=== PATIENT | female | born 1950 | race Caucasian/White ===

== ENCOUNTER 2018-11-05 08:30 | Observation (INO) | payer MEDICARE, MEDICAID ==
[2018-10-26 12:00] VITALS: BMI 23.8
[~2018-11-05] VITALS: Ht 165.1 cm; Wt 64.8 kg
[2018-11-05] VITALS (25 sets, daily range): BP systolic 108–136; BP diastolic 63–87; PULSE 70–88; RESP 14–21; Ht 165.1 cm; Wt 64.8 kg
[~2018-11-05 08:30] MED LIST: ACETAMINOPHEN 500 MG TAB PO ONE; CEFAZOLIN 2 GM/50 ML (PMX) 50 ML (FOR WT < 120 KG) IVPB ONE; DESFLURANE 15 MIN ONE; DEXAMETHASONE 4 MG/ML 1 ML INJ IV ONE; GLYCOPYRROLATE 0.4 MG INJ ONE; LACTATED RINGER'S 1,000 ML IV SCH; NEOSTIGMINE 3 MG/3 ML SYRINGE ONE; TRANEXAMIC ACID 1GM/100ML(PMX) 100 ML AT CLOSURE X1 IVPB ONE; TRANEXAMIC ACID 1GM/100ML(PMX) 100 ML AT INCISION X1 IVPB ONE
[2018-11-05] MEDS ORDERED: ACETAMINOPHEN 1000MG/100ML IV 100 ML IVPB ONE (10:30)
[2018-11-05] MEDS ORDERED: HYDR-3601 ORAL (10:34)
[2018-11-05] MEDS ORDERED: GABA100C14 ORAL (10:34)
[2018-11-05] MEDS ORDERED: AMLO5TAB4 PO (10:34)
[2018-11-05] MEDS ORDERED: MELO7.5T39 ORAL (10:34)
--- NOTE | 2018-11-05 12:17 | HPN ---
Date/Time of Note Date/Time of Note DATE: 11/05/18 TIME: 12:17 Interval H&P Admission Note Pt. seen H&P reviewed: No system changes SERGIO ESPINOSA Nov 05, 2018 12:17
--- NOTE | 2018-11-05 13:07 | PREAC ---
Date/Time of Note Date/Time of Note DATE: 11/05/18 TIME: 13:06 Anesthesia Eval and Record Evaluation Time Pre-Procedure Interview DATE: 11/05/18 TIME: 13:06 Age 68 Sex female NPO: 8 hrs Preoperative diagnosis knee OA Planned procedure total Knee replacement Past Medical History Past Medical History: Includes Cardio: HTN Surgery & Anesthesia Issues No known issue Meds Anticoagulation: No Beta Teena within 24 hr: No Reason Beta Teena not given: Pt. not on B-Teena Reported Medications Amlodipine Besylate* (Norvasc*) 5 Mg Tablet, 5 MG PO DAILY, TAB 11/05/18 Hydrocodone Bit-Acetaminophen (Hydrocodone Bit-APAP) 5-325MG Tablet, 1 TAB ORAL Q4 PRN for PAIN LEVEL 7-10 11/05/18 Meloxicam (Mobic) 7.5 Mg Tablet, 1 TAB ORAL DAILY 11/05/18 Gabapentin* (Gabapentin*) 100 Mg Capsule, 1 CAP ORAL TID 11/05/18 Current Medications Lactated Ringer's 1,000 ml @ 25 mls/hr Q24H IV Last administered on 11/05/18at 06:00; Admin Dose 25 MLS/HR; Start 11/05/18 at 06:00 Meds reviewed: Yes Allergies Coded Allergies: No Known Allergy (Unverified , 11/05/18) Allergies Reviewed: Yes Labs/Studies Labs Reviewed: Reviewed by anesthesiologist Result Diagram: 11/05/18 1030 Laboratory Tests 11/05/18 10:30 Blood Bank Test 11/05/18 10:30 Antibody Screen NEGATIVE Blood Type B POSITIVE test: N/A Studies: ECG Pre-procedure Exam Last vitals Vital Signs Date Temp Pulse Resp B/P (MAP) Pulse Ox O2 O2 Flow FiO2 Time Delivery Rate 11/05/18 98.5 71 16 136/87 99 Room Air 10:29 (103) Airway: Adequate mouth opening, Adequate thyromental dist Mallampati: Mallampati II Teeth: Normal Lung: Normal Heart: Normal ASA Physical Status ASA physical status: 2 Emergency: None Planned Anesthetic General/MAC: ETT Neuraxial: Spinal Planned Pain Management Sub-arachniod narcotics Pre-operative Attestations Prior to commencing anesthesia and surgery, the patient was re-evaluated, there was verification of: *The patient's identity *The results of appropriate recent lab work and preoperative vital signs *The above evaluation not changing prior to induction *Anesthetic plan, risk benefits, alternative and complications discussed with patient/family; questions answered; patient/family understands, accepts and wishes to proceed. TRENTON YOU Nov 05, 2018 13:07
[2018-11-05] MEDS ORDERED: TRANEXAMIC ACID 1GM/100ML(PMX) 200 ML ONE (13:44)
[2018-11-05] MEDS ORDERED: BACITRACIN 50000 UNITS INJ ONE (13:51)
[2018-11-05] MEDS ORDERED: POLYMYXIN B 500000 UNIT INJ ONE (13:53)
[2018-11-05] MEDS ORDERED: morphine SULFATE/PF (10 MG/10 ML) INJ ONE (14:10)
[2018-11-05] MEDS ORDERED: MIDAZOLAM 1 MG/ML 2 ML INJ ONE (14:11)
--- NOTE | 2018-11-05 16:01 | SIPON ---
Date/Time of Note Date/Time of Note DATE: 11/05/18 TIME: 16:00 Operative Report Preoperative Diagnosis Left knee osteoarthritis is Postoperative Diagnosis Same Operation/Procedure Performed Left total knee replacement Surgeon see signature line title i assistant KASI Kennedy Anesthesia: spinal Estimated blood loss: 150 - 200 ml's Transfusion Required none Specimen Bone Grafts/Implants Attune knee, size 5 femur, size 4 tibia, 6 mm polyethylene, 32 patella Complications none SERGIO ESPINOSA Nov 05, 2018 16:01
--- NOTE | 2018-11-05 16:05 | OPR ---
Date/Time of Note Date/Time of Note DATE: 11/05/18 TIME: 16:01 Operative Report Procedure Date: Nov 05, 2018 Preoperative Diagnosis Left knee osteoarthritis Postoperative Diagnosis Same Operation/Procedure Performed Left total knee replacement Surgeon see signature line Cd Mixer Helper KASI Kennedy Anesthesia Type: spinal Estimated Blood Loss: 150 - 200 ml's Transfusion none Specimen Bone Grafts/Implants Attune knee, size 5 femur, size 4 tibia, 6 mm polyethylene and 32 patella Tubes/Drains None Complications none Pt Condition Post Procedure: stable Disposition: PACU Indications The patient is a 68-year-old female with advanced osteoarthritis of her left knee Procedure Description Patient was placed supine on the operating room table. The left knee was prepped and draped in the usual manner. An anterior incision was made. A mid vastus approach was made in the patella displaced laterally without everting it. Using intramedullary alignment, the distal femoral cut was made in 5 degrees of valgus. The femoral cuts were made including anterior posterior and chamfer cuts. A notch was cut in the distal femur to accommodate the posterior stabilized femoral component. The PCL was sacrificed and remnants of the menisci were removed. Tibia was cut using external alignment of the tibia was prepared in slight external rotation for a size 4 component. The patella was cut using a freehand technique. Trials were inserted including a 5 femur, 4 tibia, 32 patella and 6 mm of polyethylene. This resulted in a stable knee from 0-130 degrees with good balance and tracking. X-rays confirm proper alignment of the implants. Once satisfactory alignment was confirmed, the trials were removed and final components cemented in place. The knee was irrigated and closed in layers using #1 strata fix for deep fascia, 2-0 Vicryl for subcutaneous tissue and 3-0 Monocryl for the skin. The knee was injected with pain cocktail. Patient was transferred to the recovery room in stable condition SERGIO ESPINOSA Nov 05, 2018 16:04
[2018-11-05] MEDS ORDERED: ROPIVACAINE 0.5 % 30 ML VIAL ONE (16:08)
[2018-11-05] MEDS ORDERED: LIDOCAINE 100 MG SYRINGE ONE (16:08)
[2018-11-05] MEDS ORDERED: PROPOFOL 20 ML ONE (16:08)
[2018-11-05] MEDS ORDERED: ROCURONIUM 50 MG INJ ONE (16:08)
[2018-11-05] MEDS ORDERED: SUCCINYLCHOLINE CHLORIDE 100 MG/5 ML SYG IV ONE (16:08)
[2018-11-05] MEDS ORDERED: CEFAZOLIN 1 GM INJ ONE (16:08)
[2018-11-05] MEDS ORDERED: NACL 0.9% 3 ML SYG IV SCH (16:30)
[2018-11-05] MEDS ORDERED: MAGNESIUM HYDROXIDE 30ML CUP PO PRN (16:30)
[2018-11-05] MEDS ORDERED: KETOROLAC 15 MG INJ IV PRN (16:30)
[2018-11-05] MEDS ORDERED: NALOXONE (0.4 MG/ML) INJ IV PRN (16:30)
[2018-11-05] MEDS: LACTATED RINGER'S 1,000 ML IV SCH (16:45)
[2018-11-05] MEDS: CEFAZOLIN 2 GM/50 ML (PMX) 50 ML IVPB SCH (16:56)
[2018-11-05] MEDS ORDERED: hydrALAzine 20 MG INJ IV PRN (18:00)
--- NOTE | 2018-11-05 20:56 | HP ---
DATE OF ADMISSION: 11/05/2018 CHIEF COMPLAINT: Left knee pain. HISTORY OF PRESENT ILLNESS: The patient is a 68-year-old female with history of left knee degenerati ve joint disease and hypertension. The patient failed conservative treatment and is being followed D froylan Espinosa. The patient was recommended to undergo a left total knee replacement. The patient postop eratively denies any chest pain or short of breath. No history of nausea, vomiting. No previous his tory of congestive heart failure. No previous history of TIA or CVA. No history of diabetes. The p atient does not have any numbness, tingling in any extremity. No history of recurrent fall. Prior t o surgery, she did not have any cough, chest congestion, headache, dizziness, or syncope. REVIEW OF SYSTEMS: A total of 10 systems reviewed, all pertinent positive and negative findings have been described in HPI. Rest of review of systems were unremarkable. Primarily other than postopera tive pain review of systems were unremarkable. PAST SURGICAL HISTORY: The patient is status post nasal septum surgery. FAMILY HISTORY: Parents of old age. SOCIAL HISTORY: No smoking or alcohol. ALLERGIES: NO KNOWN DRUG ALLERGIES. MEDICATION: Amlodipine 5 mg once a day. PHYSICAL EXAMINATION: GENERAL: Awake, alert, oriented x3. VITAL SIGNS: Temperature 98.3, pulse 88, respirations 21, blood pressure 129/73, O2 saturation 98% o n room air. HEENT: Atraumatic, normocephalic. Conjunctivae normal. Pupils are round, reactive to light and acc ommodation. Oropharynx grossly negative. NECK: Supple. No mass, lymph node, thyromegaly, no carotid bruit. CHEST: Fairly clear. CARDIOVASCULAR: S1, S2 normal, no murmur. ABDOMEN: Soft, nontender, no palpable mass. EXTREMITIES: No pedal edema, clubbing or cyanosis. NEUROLOGIC: The patient is awake, alert with no gross focal deficit, although examination was limite d due to recent left knee replacement. LABORATORY DATA: WBC 7.9, hemoglobin 12.5, platelet 230. Coagulation profile: PT 12.5, PTT 27.7, b oth within normal limit. Preop chemistry revealed sodium 141, potassium 3.9, BUN 21, creatinine 0.8, AST 19, ALT 19, alkaline phosphatase 76. EKG normal sinus rhythm with no acute ST changes. Chest x-ray revealed no acute cardiopulmonary finding. IMPRESSION: 1. Left knee osteoarthritis status post left total knee replacement. 2. Hypertension. PLAN: The patient admitted on medical floor. The patient was started on regular diet. We will cont inue her Norvasc starting tomorrow for DVT prophylaxis. The patient will be started on aspirin for p ostoperative pain. The patient will be given Celebrex, gabapentin around the clock, oxycodone and IV Toradol on a p.r.n. basis. We will continue to follow her postoperatively. Plan of care is discuss ed with patient and nursing staff. Dictated By: FREDI MCDONALD MD AB/NTS Conf#: [id number] DID#: [id number] CC: FREDI MCDONALD MD; SERGIO ESPINOSA MD;*End*
[2018-11-05] MEDS: GABAPENTIN 100 MG CAP PO SCH (21:08)
[2018-11-06] VITALS: BP 119/73; PULSE 77; RESP 18
[2018-11-06 01:28] VITALS: BP 116/71; PULSE 78; RESP 18
[2018-11-06] MEDS: CEFAZOLIN 2 GM/50 ML (PMX) 50 ML IVPB SCH ×2 (01:49→08:17)
[2018-11-06] MEDS: LACTATED RINGER'S 1,000 ML IV SCH (04:55)
[2018-11-06 08:11] VITALS: BP 132/75; PULSE 82; RESP 18
[2018-11-06] MEDS: AMLODIPINE 5 MG TAB PO SCH (08:18)
[2018-11-06] MEDS: DOCUSATE SODIUM 100 MG CAP PO SCH ×2 (08:18→21:58)
[2018-11-06] MEDS: CELECOXIB 100 MG CAP PO SCH ×2 (08:19→21:58)
[2018-11-06] MEDS: ASPIRIN (EC) 81 MG TAB PO SCH ×2 (08:19→21:59)
[2018-11-06] MEDS: GABAPENTIN 100 MG CAP PO SCH ×3 (08:19→21:58)
--- NOTE | 2018-11-06 08:38 | PAC ---
Date/Time of Note Date/Time of Note DATE: 11/06/18 TIME: 08:38 Post-Anesthesia Notes Post-Anesthesia Note Last documented vital signs Vital Signs Date Temp Pulse Resp B/P (MAP) Pulse Ox O2 O2 Flow FiO2 Time Delivery Rate 11/06/18 98.2 82 18 132/75 97 Room Air 08:11 (94) Activity: WNL Respiratory function: WNL Cardiovascular function: WNL Mental status: Baseline Pain reasonably controlled: Yes Hydration appropriate: Yes Nausea/Vomiting absent: Yes TRENTON YOU Nov 06, 2018 08:38
--- NOTE | 2018-11-06 11:40 | PN ---
Date/Time of Note Date/Time of Note DATE: 11/06/18 TIME: 11:39 Assessment/Plan VTE Prophylaxis Risk score (from Ns)>0 risk: 8 SCD applied (from Ns): Yes SCD contraindicated: other Pharmacological prophylaxis: other Pharm contraindication: other Lines/Catheters IV Catheter Type (from Nrsg): Peripheral IV Assessment/Plan Assessment/Plan - Left knee osteoarthritis status post left total knee replacement. - per ortho - pain control - PT as tolerated - wound check - Leukocytosis- sp Ancef x 3 doses; monitor CBC AND vs - Hypertension- stable . Plan of care is discussed with Dr Hwang/patient and nursing staff. Result Diagram: 11/06/1843011/06/18 0431 Results 24hrs Laboratory Tests Test 11/05/18 20:00 11/06/18 04:31 Urine Color STRAW Urine Clarity SLIGHTLY CLOUDY A Urine pH 6.0 Urine Specific Scenic 1.013 Urine Ketones NEGATIVE Urine Nitrite POSITIVE A Urine Bilirubin NEGATIVE Urine Urobilinogen NEGATIVE Urine Leukocyte Esterase NEGATIVE Urine Microscopic RBC 2 Urine Microscopic WBC 2 Urine Squamous Epithelial Cells FEW Urine Bacteria FEW A Urine Hemoglobin 1+ H Urine Glucose NEGATIVE Urine Total Protein NEGATIVE White Blood Count 15.0 #H Red Blood Count 4.39 Hemoglobin 11.0 L Hematocrit 35.0 L Mean Corpuscular Volume 79.7 L Mean Corpuscular Hemoglobin 25.1 L Mean Corpuscular Hemoglobin Concent 31.4 L Red Cell Distribution Width 14.1 Platelet Count 210 Mean Platelet Volume 12.0 H Immature Granulocytes % 0.500 H Neutrophils % 81.5 H Lymphocytes % 10.2 L Monocytes % 7.5 Eosinophils % 0.1 Basophils % 0.2 Nucleated Red Blood Cells % 0.0 Immature Granulocytes # 0.070 H Neutrophils # 12.2 H Lymphocytes # 1.5 Monocytes # 1.1 H Eosinophils # 0.0 Basophils # 0.0 Nucleated Red Blood Cells # 0.0 Sodium Level 142 Potassium Level 3.9 Chloride Level 108 Carbon Dioxide Level 26 Anion Gap 8 Blood Urea Nitrogen 12 Creatinine 0.55 Est Glomerular Filtrat Rate mL/min > 60 Glucose Level 114 Calcium Level 8.8 Subjective 24 Hr Interval Summary Eyes: no complaints ENT: no complaints Respiratory: no complaints Cardiovascular: no complaints Gastrointestinal: no complaints Genitourinary: no complaints Musculoskeletal: bone/joint pain, restricted range of motion Skin: no complaints Endocrine: no complaints Exam/Review of Systems Exam Vitals Vital Signs Date Temp Pulse Resp B/P (MAP) Pulse Ox O2 O2 Flow FiO2 Time Delivery Rate 11/06/18 98.2 82 18 132/75 97 Room Air 08:11 (94) Intake and Output 11/05/18 11/05/18 11/06/18 1515:00 23:00 07:00 IntakeIntake Total 1540 ml 810 ml OutputOutput Total 20 ml BalanceBalance 1520 ml 810 ml Constitutional: alert, oriented, well developed Psych: nl mood/affect Head: atraumatic Eyes: nl lids, nl sclera ENMT: nl external ears & nose Neck: non-tender Respiratory: clear to auscultation Cardiovascular: nl pulses, other (s1s2) Gastrointestinal: soft, non-tender Musculoskeletal: joint tenderness, range of motion, other (Left knee- DDI ; CSM intact) Extremities: normal pulses Neurological: nl mental status, nl speech Results Results 24hrs Laboratory Tests Test 11/05/18 20:00 11/06/18 04:31 Urine Color STRAW Urine Clarity SLIGHTLY CLOUDY A Urine pH 6.0 Urine Specific Scenic 1.013 Urine Ketones NEGATIVE Urine Nitrite POSITIVE A Urine Bilirubin NEGATIVE Urine Urobilinogen NEGATIVE Urine Leukocyte Esterase NEGATIVE Urine Microscopic RBC 2 Urine Microscopic WBC 2 Urine Squamous Epithelial Cells FEW Urine Bacteria FEW A Urine Hemoglobin 1+ H Urine Glucose NEGATIVE Urine Total Protein NEGATIVE White Blood Count 15.0 #H Red Blood Count 4.39 Hemoglobin 11.0 L Hematocrit 35.0 L Mean Corpuscular Volume 79.7 L Mean Corpuscular Hemoglobin 25.1 L Mean Corpuscular Hemoglobin Concent 31.4 L Red Cell Distribution Width 14.1 Platelet Count 210 Mean Platelet Volume 12.0 H Immature Granulocytes % 0.500 H Neutrophils % 81.5 H Lymphocytes % 10.2 L Monocytes % 7.5 Eosinophils % 0.1 Basophils % 0.2 Nucleated Red Blood Cells % 0.0 Immature Granulocytes # 0.070 H Neutrophils # 12.2 H Lymphocytes # 1.5 Monocytes # 1.1 H Eosinophils # 0.0 Basophils # 0.0 Nucleated Red Blood Cells # 0.0 Sodium Level 142 Potassium Level 3.9 Chloride Level 108 Carbon Dioxide Level 26 Anion Gap 8 Blood Urea Nitrogen 12 Creatinine 0.55 Est Glomerular Filtrat Rate mL/min > 60 Glucose Level 114 Calcium Level 8.8 Medications Medication Current Medications Lactated Ringer's 1,000 ml @ 80 mls/hr [id number] IV Last administered on 11/06/18at 04:55; Admin Dose 80 MLS/HR; Start 11/05/18 at 16:05 IV Flush (NS 3 ml) 3 ml PER PROTOCOL IV ; Start 11/05/18 at 16:30 Oxycodone HCl (Roxicodone) 10 mg Q4H PRN PO .PAIN; Start 11/05/18 at 16:30 Oxycodone HCl (Roxicodone) 5 mg Q4H PRN PO .PAIN; Start 11/05/18 at 16:30 Ketorolac Tromethamine (Toradol) 15 mg Q6H PRN IV .PAIN; Start 11/05/18 at 16:30 Ondansetron HCl (Zofran Inj) 4 mg Q4H PRN IV NAUSEA/VOMITING; Start 11/06/18 at 16:30 Celecoxib (Celebrex) 100 mg BID PO Last administered on 11/06/18at 08:19; Admin Dose 100 MG; Start 11/06/18 at 09:00 Gabapentin (Neurontin) 100 mg TID PO Last administered on 11/06/18at 08:19; Admin Dose 100 MG; Start 11/05/18 at 21:00 Pantoprazole (Protonix Tab) 40 mg DAILY@06 PO ; Start 11/07/18 at 06:00 Docusate Sodium (Colace) 200 mg BID PO Last administered on 11/06/18at 08:18; Admin Dose 200 MG; Start 11/06/18 at 09:00; Stop 11/09/18 at 08:59 Magnesium Hydroxide (Milk Of Mag) 30 ml HS PRN PO .CONSTIPATION; Start 11/05/18 at 16:30 Naloxone HCl (Narcan) 0.2 mg Q2M PRN IV .RESP RATE; Start 11/05/18 at 16:30 Aspirin (Halfprin) 81 mg BID PO Last administered on 11/06/18at 08:19; Admin Dose 81 MG; Start 11/06/18 at 09:00 Amlodipine Besylate (Norvasc) 5 mg DAILY PO Last administered on 11/06/18at 08:18; Admin Dose 5 MG; Start 11/06/18 at 09:00 Hydralazine HCl (Apresoline) 10 mg Q6H PRN IV sbp>150, dbp >95; Start 11/05/18 at 18:00 JAYY PIMENTEL Nov 06, 2018 11:40
[2018-11-06] MEDS: oxyCODONE 5 MG TAB PO PRN ×2 (14:20→21:58)
[2018-11-06 14:42] VITALS: BP 125/68; PULSE 81; RESP 18
[2018-11-06] MEDS ORDERED: ONDANSETRON 4 MG INJ IV PRN (16:30)
[2018-11-06 19:35] VITALS: BP 115/79; PULSE 82; RESP 18
[2018-11-07 01:45] VITALS: BP 114/65; PULSE 80; RESP 18
[2018-11-07] MEDS: PANTOPRAZOLE (EC) 40 MG TAB PO SCH (05:52)
[2018-11-07 07:21] VITALS: BP 126/75; PULSE 83; RESP 16
[2018-11-07] MEDS: AMLODIPINE 5 MG TAB PO SCH (09:14)
[2018-11-07] MEDS: GABAPENTIN 100 MG CAP PO SCH ×3 (09:14→21:04)
[2018-11-07] MEDS: DOCUSATE SODIUM 100 MG CAP PO SCH ×2 (09:14→21:04)
[2018-11-07] MEDS: CELECOXIB 100 MG CAP PO SCH ×2 (09:14→21:09)
[2018-11-07] MEDS: ASPIRIN (EC) 81 MG TAB PO SCH ×2 (09:14→21:04)
[2018-11-07] MEDS: oxyCODONE 5 MG TAB PO PRN (09:18)
[2018-11-07 14:32] VITALS: BP 111/55; PULSE 78; RESP 14
[2018-11-07 19:30] VITALS: BP 101/59; PULSE 91; RESP 18
--- NOTE | 2018-11-08 00:47 | PN ---
DATE: 11/07/2018 SUBJECTIVE: Follow up on recent total knee replacement and hypertension. The patient still has post operative pain. Denies any chest pain or shortness of breath. No history of fever or chills. The p atient did have a bowel movement today. PHYSICAL EXAMINATION: GENERAL: The patient is awake, alert. VITAL SIGNS: Temperature 98.7, pulse 91, respirations 18, blood pressure 101/59, O2 sat 98% on room air. HEENT: No eye discharge or redness. Conjunctivae and lids are normal. Oropharynx clear. NECK: No mass. CHEST: Fairly clear. CARDIOVASCULAR: S1, S2 normal, no murmur. ABDOMEN: Soft, nondistended, nontender. Bowel sounds present. EXTREMITIES: No ankle edema. Pedal pulses palpable. SKIN: Without acute rash or ulcer. NEUROLOGIC: The patient is awake, alert, fairly oriented with no gross focal deficit. LABORATORY DATA: Done this morning, WBC 12.5, hemoglobin 10.9, platelets 170. Sodium 138, potassium 4.3, BUN 15, creatinine 0.7, glucose 102, calcium 8.8, bicarbonate 31. IMPRESSION: 1. Left knee osteoarthritis status post total knee replacement. Continue Celebrex and Neurontin for pain control in addition to oxycodone. For deep vein thrombosis prophylaxis, continue aspirin. 2. Hypertension. Blood pressure well controlled with Norvasc 5 mg. 3. Postoperative mild anemia. Hemoglobin dropped to 10.9 from 12.5. Continue to monitor. DISPOSITION: Discharge planning for discharge to home underway. If patient remains stable, she will be discharged home tomorrow. Plan of care discussed with nursing staff and patient. Dictated By: FREDI ARREGUIN/MARIA INES Conf#: [id number] DID#: [id number] CC: SERGIO ESPINOSA MD;*EndCC*
[2018-11-08 02:45] VITALS: BP_SYST 120; PULSE 82; RESP 20
[2018-11-08] MEDS: PANTOPRAZOLE (EC) 40 MG TAB PO SCH (05:52)
[2018-11-08 07:41] VITALS: BP 124/68; PULSE 76; RESP 15
[2018-11-08] MEDS: CELECOXIB 100 MG CAP PO SCH (09:10)
[2018-11-08] MEDS: DOCUSATE SODIUM 100 MG CAP PO SCH (09:10)
[2018-11-08] MEDS: GABAPENTIN 100 MG CAP PO SCH ×2 (09:10→13:26)
[2018-11-08] MEDS: AMLODIPINE 5 MG TAB PO SCH (09:11)
[2018-11-08] MEDS: ASPIRIN (EC) 81 MG TAB PO SCH (09:11)
[2018-11-08] MEDS: oxyCODONE 5 MG TAB PO PRN (09:18)
[2018-11-08 14:28] VITALS: BP 108/64; PULSE 76; RESP 15
--- NOTE | 2018-11-09 03:00 | DS ---
DATE OF ADMISSION: 11/05/2018 DATE OF DISCHARGE: 11/08/2018 DISCHARGE DIAGNOSES: 1. Left knee osteoarthritis status post total knee replacement. 2. Hypertension. DISCHARGE MEDICATIONS: The patient is to resume home medication as before. In addition, the patient will take: 1. Gabapentin 100 mg t.i.d. 2. Jasper 5/325 q.4 p.r.n. 3. Meloxicam 7.5 mg once a day. REASON FOR ADMISSION: The patient is a 68-year-old female with history of hypertension and left knee osteoarthritis, was being followed by Dr. Espinosa as an outpatient. The patient failed conservative t reatment and subsequently was recommended total knee replacement. The patient was admitted on the da y of admission after left total knee replacement. The patient's postoperative course was unremarkabl e except for significant postoperative complication. The patient did participate in physical therapy . On the day of discharge, the patient was breathing comfortably. There was no fever or chills. PHYSICAL EXAMINATION: VITAL SIGNS: Temperature 97.6, pulse 76, respirations 15, blood pressure 108/64, O2 saturation 100% on room air. HEENT: No eye discharge or redness. Conjunctivae and lids are normal. Oropharynx is clear. NECK: Supple. No mass, no thyromegaly. CHEST: Fairly clear. CARDIOVASCULAR: S1, S2, normal. No murmur. ABDOMEN: Soft, nondistended, nontender. Bowel sounds are plus. EXTREMITIES: No leg edema. Pedal pulses are palpable. SKIN: Without rash. NEUROLOGIC: The patient is awake, alert, oriented with no gross focal deficit. LABORATORY DATA: Done this morning, WBC 11.4, hemoglobin 10.1, platelet 159. Sodium 139, potassium 3.7, BUN 16, creatinine 0.6, glucose 101, calcium 4.4. IMPRESSION: 1. Left total knee replacement for osteoarthritis. 2. Hypertension. PLAN: The patient will be discharged home today and will have followup with PMD and Dr. Espinosa as an outpatient. CONDITION ON DISCHARGE: Stable. Dictated By: FREDI MCDONALD MD AB/NTS Conf#: [id number] DID#: [id number] CC: SERGIO ESPINOSA MD;*EndCC*
== END 2018-11-08 17:25 | disposition home health service (06) ==
LOC: REC 09:36 → INTOOBSV 09:36 → MS1 18:10
PROVIDERS: ADMIT Orthopaedic Surgery; ATTEND Orthopaedic Surgery
DX: M17.12 Unilateral primary osteoarthritis, left knee (principal); I10 Essential (primary) hypertension
CPT/HCPCS: 27447; 73560; 80048; 81001; 85025; 85610; 85730; 86850; 86900; 86901; 87081; 88304; 88311; 97110; 97116; 97161; 97530; C1713; C1776; G0378; J0131; J0171; J0690; J0735; J1100; J1885; J2001; J2250; J2274; J2710; J2795; J7120; 99217